=== PATIENT | male | born 1960 | race Native Hawaiian/Other Pacific Islander ===

== ENCOUNTER 2017-11-18 11:21 | Outpatient (CLI) | payer BC ==
[2017-11-18 11:44] LABS: PLATELET COUNT 426 K/uL (142-355)
== END 2017-11-18 20:03 | disposition home or self-care (01) ==
LOC: LABW 11:21
PROVIDERS: Internal Medicine
DX: D64.89 Other specified anemias (principal)
CPT/HCPCS: 36415; 85027

== ENCOUNTER 2017-11-25 12:47 | Outpatient (CLI) | payer BC | END 2017-11-25 23:59 | disposition home or self-care (01) | LOC: LAB 12:47 | DX: S81.811D Laceration without foreign body, right lower leg, subsequent encounter (principal) | CPT/HCPCS: 87070; 87077; 87185; 87186; 87205 ==

== ENCOUNTER 2017-12-01 09:28 | Outpatient (CLI) | payer BC ==
[2017-12-01 09:47] LABS: PLATELET COUNT 330 K/uL (142-355)
== END 2017-12-01 23:12 | disposition home or self-care (01) ==
LOC: LABW 09:28
PROVIDERS: Internal Medicine
DX: D64.89 Other specified anemias (principal); D50.8 Other iron deficiency anemias
CPT/HCPCS: 36415; 82607; 82728; 82747; 83540; 85027; 85044

== ENCOUNTER 2017-12-25 15:53 | Outpatient (CLI) | payer BC ==
[2017-12-25 16:22] LABS: PLATELET COUNT 406 K/uL (142-355)
== END 2017-12-25 19:50 | disposition home or self-care (01) ==
LOC: LABW 15:53
PROVIDERS: Internal Medicine
DX: L02.838 Carbuncle of other sites (principal)
CPT/HCPCS: 36415; 85027

== ENCOUNTER 2018-02-04 08:32 | Outpatient (CLI) | payer BC ==
[2018-02-04 08:47] LABS: PLATELET COUNT 315 K/uL (142-355)
== END 2018-02-04 23:17 | disposition home or self-care (01) ==
LOC: LABW 08:32
PROVIDERS: Internal Medicine
DX: D50.8 Other iron deficiency anemias (principal)
CPT/HCPCS: 36415; 82728; 83540; 85027

== ENCOUNTER 2018-09-16 15:19 | Outpatient (CLI) | payer BC ==
[2018-09-16 15:50] LABS: PLATELET COUNT 283 K/uL (142-355)
== END 2018-09-16 20:36 | disposition home or self-care (01) ==
LOC: LABW 15:19
PROVIDERS: Internal Medicine Hematology & Oncology
DX: D64.9 Anemia, unspecified (principal)
CPT/HCPCS: 36415; 80053; 82728; 83540; 83550; 85027

== ENCOUNTER 2018-10-19 13:22 | Outpatient (CLI) | payer BC | END 2018-10-19 19:25 | disposition home or self-care (01) | LOC: RAD 13:22 | DX: M54.5 Low back pain (principal) ==

== ENCOUNTER 2019-08-01 07:57 | Outpatient (CLI) | payer BC | END 2019-08-01 19:08 | disposition home or self-care (01) | LOC: RESP 07:57 | DX: J45.909 Unspecified asthma, uncomplicated (principal) ==

== ENCOUNTER 2019-11-24 13:54 | Outpatient (CLI) | payer BC | END 2019-11-24 21:41 | disposition home or self-care (01) | LOC: CT 13:54 | DX: F17.210 Nicotine dependence, cigarettes, uncomplicated (principal) | CPT/HCPCS: G0297-TC ==

== ENCOUNTER 2021-01-18 11:07 | Outpatient (CLI) | payer BC, OTHER ==
[~2021-01-18] VITALS: Ht 180.3 cm; Wt 109.8 kg
== END 2021-01-18 19:06 | disposition home or self-care (01) ==
LOC: INF 11:07
PROVIDERS: ATTEND Internal Medicine
DX: Z23 Encounter for immunization (principal); U07.1 COVID-19
CPT/HCPCS: 96365; 96375; J2930; M0244

== ENCOUNTER 2021-11-14 11:03 | Outpatient (CLI) | payer BC | END 2021-11-14 19:16 | disposition home or self-care (01) | LOC: LABW 11:03 | PROVIDERS: ATTEND Orthopaedic Surgery Orthopaedic Surgery of the Spine | DX: Z72.0 Tobacco use (principal) | CPT/HCPCS: 36415; 80323 ==

== ENCOUNTER 2021-12-28 06:37 | Emergency (ER) | payer BC ==
[~2021-12-28] VITALS: Ht 180.3 cm; Wt 109.8 kg
[2021-12-28 06:40] VITALS: BP 115/82; TEMP 98.4
[2021-12-28 07:05] LABS: PLATELET COUNT 191 K/uL (142-355)
[2021-12-28 07:19] LABS: POTASSIUM 3.3 mmol/L (3.6-5.2)
== END 2021-12-28 10:25 | disposition home or self-care (01) ==
LOC: ED 06:37
PROVIDERS: Hospitalist
DX: K52.89 Other specified noninfective gastroenteritis and colitis (principal); R11.2 Nausea with vomiting, unspecified; E86.0 Dehydration; Z11.52 Encounter for screening for COVID-19; R19.7 Diarrhea, unspecified
CPT/HCPCS: 36415; 80053; 80320; 81002; 81015; 83690; 85027; 87635; 96360; 96365; 96375; 99284; J1956; J2405; U0003